=== PATIENT | male | born 2000 | race Caucasian/White ===

== ENCOUNTER 2019-10-15 18:29 | Emergency (ER) | payer BC ==
[~2019-10-15] VITALS: Ht 180.3 cm; Wt 68.0 kg
[2019-10-15 20:21] LABS: ABSOLUTE BASOPHILS 0.1 thou/uL (0.0-0.2); ABSOLUTE EOSINOPHILS 0.3 thou/uL (0.0-0.7); ABSOLUTE LYMPHOCYTES 2.9 thou/uL (0.8-5.3); ABSOLUTE MONOCYTES 0.7 thou/uL (0.0-1.2); BASOPHILS 0.9 %; EOSINOPHILS 3.5 %; HEMATOCRIT 37.2 % (42.0-52.0); LYMPHOCYTES 32.6 %; MCH 24.1 pg (26.0-34.0); MCHC 32.2 g/dL (28.0-37.0); MCV 74.8 fL (80.0-100.0); MONOCYTES 7.3 %; MPV 9.6 fl. (7.2-11.1); NUCLEATED RBCS 0 /100WBC; PLATELET COUNT* 241 thou/uL (150-400); POLYS 55.7 %; RBC 4.98 mil/uL (4.50-6.00)
[2019-10-15 20:28] LABS: CALCIUM 8.9 mg/dL (8.5-10.1); CREATININE 0.9 mg/dL (0.6-1.3); POTASSIUM 3.8 mmol/L (3.5-5.1)
[2019-10-15 20:32] LABS: ALBUMIN 4.3 g/dL (3.4-5.0); TOTAL BILIRUBIN 0.2 mg/dL (<0.1-1.0); TOTAL PROTEIN 8.3 g/dL (6.4-8.2)
[2019-10-15 21:22] VITALS: BP 115/71
== END 2019-10-15 21:23 | disposition home or self-care (01) ==
LOC: M.ERS 18:29
PROVIDERS: Family Medicine
DX: K62.5 Hemorrhage of anus and rectum (principal)